=== PATIENT | female | born 1945 | race Caucasian/White ===

== ENCOUNTER → 2019-10-03 | Outpatient (CLI) | payer OTHER ==
--- NOTE | 2019-10-03 16:22 | REPPI ---
REASON: Preoperative evaluation. PRIORS: None. There is mild cardiomegaly. There is evidence of mild basilar fibrotic change. No patchy opacities or pleural effusions are present. There is a prosthetic right shoulder. IMPRESSION: Mild cardiomegaly is suspected. There is no evidence of acute cardiopulmonary disease. Electronically Signed by Gavin Jovel DO 10/03/2019 04:37 P
== END ==
LOC: M PLAIMG 11:14
PROVIDERS: ATTEND Physician Assistant
DX: Z01.818 Encounter for other preprocedural examination (principal); Z96.611 Presence of right artificial shoulder joint; I51.7 Cardiomegaly

== ENCOUNTER → 2020-12-04 | Outpatient (CLI) | payer OTHER ==
[~2020-12-04] MED LIST: ATOR1TAB21 PO; CARV25TA PO; DIGO0.123 PO; ELIQ5TAB PO; TAMO20TA8 PO
--- NOTE | 2020-12-04 11:56 | RADONC.CN ---
Radiation Oncology Hx/Consult Radiation Oncology Consult Date of Service: Dec 04, 2020 Pt Identifier Ally Saxena is a 75 year old female with clinically detected right breast cancer [id number] ER/TN+ HER2- Grade 2 (2/5 SLN+ 1/5 SLN w/micromet) Oncotype 17 s/p lumpectomy and SLNB on 09/18/20 (Dr. Pemberton). She is seen today for consideration of adjuvant RT. She has already started tamoxifen. Diagnosis/Treatment History Oncologic History Followed by [facility] for mammogram and US screening due to dense breasts and cysts. COVID pandemic caused missed screening appointment in 2019. In early 2020 she palpated a central right breast lesion near one of her cysts. 07/26/20 She underwent biopsy which revealed IDC Grade 2 ER/TN+ HER2- 08/22/20 EOD MRI ([facility]) without regional disease or other concerning foci 09/18/20 Lumpectomy with SLNB (Dr. Pemberton) [id number] 2/5 LN+ with macrometastatic deposits, 1/5 LN+ with micrometastasis MAURO-, EIC+. Margins negative Breast history: (3 interrupted pregnancies) Menses @ 15 Menopause @ 52 (surgical) History of HRT No OCP No IVF Interval History Here with her daughter Karen and Saloni. She reports that she has some occasional right axillary discomfort post surgery. This is improving in time. She has full ROM of the right arm but it gets sore due to prior shoulder surgery. She has preserved appetite and energy. She is recently retired. She is anxious about her diagnosis. She has night sweats intermittently since starting tamoxifen. Past Medical History: DMII GERD CVD HPL Osteopenia Anxiety Past Surgical History: Cataracts 2017 C section 1977 Cholecystectomy Colonoscopy Right shoulder replacement Right thumb trigger finger release Hysterectomy Family History: Father esophagus cancer Mother breast cancer Social History: Never smoker Never drinker Review of Systems Constitutional: Reports: Night Sweats; Denies: Fatigue, Weight Loss Eyes: Denies: Pain HEENT: Denies: Head Aches Skin: Denies: Rash Pulmonary: Denies: Dyspnea Cardiovascular: Denies: Chest Pain Breast: Denies: New Breast Lumps / Masses, Nipple Retraction, Nipple Discharge, Breast Skin Changes, Breast Pain or Tenderness, Other Breast Complaints Gastrointestinal: Denies: Nausea, Abdominal Pain Hematologic: Denies: Bruising Musculoskeletal: Reports: Arm pain; Denies: Neck pain, Back pain Neurological: Denies: Weakness, Numbness Psych: Reports: Mood Normal Vital Signs Ht 60" Wt 143 lbs BMI 28 T 98 P 77 RR 18 BP 150/89 O2 99% Pain 0 Fatigue 0 General Exam: Positive: Alert, Cooperative, No Acute Distress Eye Exam: Positive: PERRLA, EOMI ENT EXAM: Positive: Atraumatic Neck Exam: Negative: Lymphadenopathy Chest Exam: Positive: Clear to auscultation Heart Exam: Positive: Rate Normal Breast Exam: Positive: Symmetric Bilaterally, Skin Changes (Well healed right breast axillary and periareolar incisions); Negative: Lumps or Masses (palpable surgical site right central breast), Nipple Retraction, Nipple Discharge Abdomen Exam: Positive: Soft; Negative: Tenderness Extremity Exam: Positive: Other (ROM normal RUE); Negative: Edema Skin Exam: Positive: Nl turgor and temperature Neuro Exam: Positive: Normal Gait, Strength at 5/5 X4 ext, Cranial Nerves 3-12 NL, Other Psych Exam: Positive: Mental status NL Diagnostic and Laboratory Diagnostic Review Radiologic images, relevant labs and pathology reports were personally reviewed and discussed with Ms. Saxena. Assessment and Plan Impression Ms. Saxena is a 75 year old female with a history of clinically detected right breast cancer [id number] ER/TN+ HER2- Grade 2 (2/5 SLN+ 1/5 SLN w/micromet) Oncotype 17 s/p lumpectomy and SLNB on 09/18/20 (Dr. Pemberton). She is seen today for consideration of adjuvant RT. She has already started tamoxifen. Stage Right central breast cancer [id number] ER/TN+ HER2- Grade 2 stage IA Performance Status ECOG 0 Plan We had an extensive discussion with Ms. Saxena regarding the diagnosis at hand and available therapeutic options. She is doing well overall, recently retired, says she would like to get this behind her. She is tolerating tamoxifen despite some hot flashes. With respect to her disease, she inhabits a blount zone between ACOSOG Z0011 criteria, which would allow for WBI + boost alone, versus a more aggressive approach of WBI + RNI due to the presence of multiple LN+. The EBCTCG metaanaly sis and MA20 results support the use of RNI in a case such as this. I explained that given her age and otherwise favorable pathology I would be comfortable with WBI omitting nodes, if she was willing to incur a slightly higher risk of marlin recurrence, in order to spare toxicity. The alternative of comprehensive adjuvant RT including node bearing areas, supraclavicular, axilla, and internal mammary nodes, would result in increased toxicity risk, but higher probability of locoregional control. She was unequivocal (and family agreed) that the maximal approach of WBI+RNI is what she wants in order to minimize risk. I think this is a good individualized approach. For treatment I will give 48.6 Gy in 28 fractions to the right whole breast and a similar dose to the right supraclavicular fossa, axilla and internal mammary nodes. I will use VMAT to ensure target coverage and mitigate the risk of pulmonary, esophageal and skin toxicities. I will use an SIB approach and boost the lumpectomy cavity to 56 Gy in 28 fractions in order to limit additional fractions. We discussed the logistics of receiving radiation therapy in detail including the need for a 1-time planning session. This can happen in the next week or so. We reviewed the risks of treatment including fatigue, skin reaction, lymphedema, fibrosis, and esophagitis. After discussing the risks, benefits and alternatives to radiation therapy, Ms. Saxena was amenable to pursuing radiotherapy. All questions were answered to the patient's satisfaction. We instructed the patient that if there were any questions,concerns or changes in clinical status in the interim to contact us. Recommendations Adjuvant WBI+RNI+tumor bed boost 28 fractions VMAT Simulation in the next week OK to remain on tamoxifen through RT as she is tolerating it well Billing Statement Total time of [51] minutes was spent preparing for the visit [3], obtaining HPI [5], examining the patient [4], reviewing diagnostic tests [3], discussing roger gement options [22], coordinating care [2], and writing this note [12]. HUY VARELA MD Dec 04, 2020 11:56
== END ==
LOC: M ONCR 08:55
PROVIDERS: ATTEND General Practice
DX: C50.111 Malignant neoplasm of central portion of right female breast (principal); E11.9 Type 2 diabetes mellitus without complications; K21.9 Gastro-esophageal reflux disease without esophagitis; E78.5 Hyperlipidemia, unspecified; M85.80 Other specified disorders of bone density and structure, unspecified site; F41.9 Anxiety disorder, unspecified; Z80.1 Family history of malignant neoplasm of trachea, bronchus and lung; Z80.3 Family history of malignant neoplasm of breast; Z96.1 Presence of intraocular lens; Z96.611 Presence of right artificial shoulder joint